=== PATIENT | female | born 1980 | race Caucasian/White ===

== ENCOUNTER 2017-03-16 10:52 | Emergency (ER) | payer OTHER ==
[~2017-03-16] VITALS: Ht 162.6 cm; Wt 111.2 kg
[2017-03-16 10:57] VITALS: Ht 162.6 cm; Wt 111.2 kg
[2017-03-16] MEDS ORDERED: ALBUTEROL 0.083% (NEB) 2.5 MG/3 ML AMP HHN STA (12:37)
--- NOTE | 2017-03-16 13:10 | ERD ---
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 Patient has had a cough with yellow to greenish colored sputum, but no hemoptysis. She denies any fevers or chills. Secondarily she states that a piece of furniture hit the left side of her jaw she developed left ear pain, muffled hearing. ROS All systems reviewed and are negative except as per history of present illness. Medications Home Meds Active Scripts Mometasone Furoate* (Nasonex*) 50 Mcg/Hudson - 17 Gm Hudson.pump, 1 SPRAY NASAL BID, #1 BOTTLE IN EACH NOSTRIL Prov:LUIZA ANDRES PA-C 03/16/17 Albuterol Sulfate* (Proair HFA*) 8.5 Gm Hfa.aer.ad, 2 PUFF INH Q4, #1 INHALER Prov:LUIZA ANDRES PA-C 03/16/17 Cetirizine Hcl* (Zyrtec*) 10 Mg Capsule, 10 MG PO DAILY, #10 TAB.CHEW Prov:LUIZA ANDRES PA-C 03/16/17 Ofloxacin Otic (Ofloxacin Otic) 5 Ml Drops, 5 DROP LEFT EAR BID for 10 Days, #1 BOTTLE Prov:LUIZA ANDRES PA-C 03/16/17 Allergies Allergies: Coded Allergies: ceftriaxone (Verified Allergy, Intermediate, itching, SOB, 03/16/17) PMhx/Soc History of Surgery: Yes (x2 CS, Ovarian cysts removal,tubal ligation ) Anesthesia Reaction: No Hx Miscellaneous Medical Probl: Yes (HX DVT, PE) Hx Alcohol Use: No Hx Tobacco Use: No Smoking Status: Never smoker Physical Exam Vitals Vital Signs Date Time Temp Pulse Resp B/P Pulse Ox O2 Delivery O2 Flow Rate FiO2 03/16/17 13:22 73 20 99 21 03/16/17 10:57 97.8 89 20 129/79 100 Physical Exam = General: Well-developed, well-nourished. The patient appears in no acute distress. HEENT: Head is normocephalic, atraumatic. No scleral icterus. Pupils are equal , round, and reactive. Oral mucous membranes are moist. No pharyngeal erythema. There is a left TM rupture. There is left mandibular pain upon palpation, there is ecchymosis on the skin. The patient is able to open and close her jaw fully. Neck: Supple. Nontender. Lungs: Clear to auscultation. Normal air movement. Heart: Regular rate and rhythm. S1 and S2 are normal. No murmurs, gallops, or rubs. Abdomen: Soft, nontender, nondistended. Bowel sounds are normoactive. Extremities: No clubbing or cyanosis. Normal pulses. Moving extremities x 4. No weakness. Neurologic: Alert and oriented 3. No focal deficits. Skin: Normal turgor. No rash or lesions. Results 24 hrs Current Medications Medications (Trade) Dose Ordered Sig/Silvia Route PRN Reason Start Time Stop Time Status Last Admin Dose Admin Albuterol (Proventil 0.083% (Neb)) 2.5 mg ONCE STAT HHN 03/16/17 12:37 03/16/17 12:40 DC 03/16/17 13:21 DIAGNOSTIC IMAGING REPORT Patient: KELI MENDEZ : 1980 Age: 37 Sex: F MR #: [id number] DOS: 03/16/17 1237 Ordering MD: LUIZA ANDRES PA-C Location: [facility] Room/Bed: PROCEDURE: X-ray, Mandible. CLINICAL INDICATION: Left jaw pain. TECHNIQUE: Mandible x-rays, 5 views. COMPARISON: None. FINDINGS: Bone density appears normal. Bony cortices are smooth and contiguous. The temporomandibular joints are intact. The nasal septum is midline. The paranasal sinuses and mastoid air cells are clear. There is no periapical lucencies involving the teeth. Soft tissues are unremarkable. IMPRESSION: Unremarkable mandible series. RPTAT: [facility] .Jessica Angel MD, Date Time Electronically viewed and signed by .Jessica Angel MD, MD on 03/16/2017 14:12 .T/ CC: LUIZA ANDRES PA-C Procedures/[facility] ED COURSE: Patient was given albuterol 2.5 mg neb breathing treatment. Re-auscultation shows clear breath sounds, the patient reports dramatic improvement. [employer]-year-old female comes in with URI symptoms, chest tightness, she was given albuterol breathing treatment here and states that her chest tightness has improved. She has definite signs of URI including nasal congestion, vocal laryngitis symptoms. This is most likely a viral process, especially for pulmonary embolus is low. She had a piece of furniture hit her mandible 2 days ago and comes in with a mandibular contusion, x-ray of the mandible does not show evidence of any acute fractures. She developed a tympanic membrane perforation with the trauma, this can be seen on examination but no signs of infection. The patient denies any headache, loss of consciousness, doubt intracranial hemorrhage. Departure Diagnosis: Primary Impression: Upper respiratory infection Additional Impressions: Tympanic membrane perforation Contusion of mandibular joint area Condition: Good LUIZA ANDRES PA-C Mar 16, 2017 13:10
--- NOTE | 2017-03-16 14:12 | RADRPT ---
PROCEDURE: X-ray, Mandible. CLINICAL INDICATION: Left jaw pain. TECHNIQUE: Mandible x-rays, 5 views. COMPARISON: None. FINDINGS: Bone density appears normal. Bony cortices are smooth and contiguous. The temporomandibular joints a re intact. The nasal septum is midline. The paranasal sinuses and mastoid air cells are clear. There is no periapical lucencies involving the teeth. Soft tissues are unremarkable. IMPRESSION: Unremarkable mandible series. RPTAT: [facility]ST .Jessica Angel MD, Date Time Electronically viewed and signed by .Jessica Angel MD, on 03/16/2017 14:12 .T/
[2017-03-16] MEDS ORDERED: ALBU8.5H3 INH (14:20)
[2017-03-16] MEDS ORDERED: NASO17 NASAL (14:20)
[2017-03-16] MEDS ORDERED: CETI10CA PO (14:20)
[2017-03-16] MEDS ORDERED: OFLO5DRO7 LEFT EAR (14:20)
== END 2017-03-16 14:30 | disposition home or self-care (01) ==
LOC: FTE 10:52
DX: J06.9 Acute upper respiratory infection, unspecified (principal); S00.83XA Contusion of other part of head, initial encounter; S09.22XA Traumatic rupture of left ear drum, initial encounter; W22.03XA Walked into furniture, initial encounter; Y92.9 Unspecified place or not applicable
CPT/HCPCS: 70110; 94664; Z7502; Z7610; 94640